=== PATIENT | female | born 1985 | race Asian ===

== ENCOUNTER 2018-02-14 21:22 | Inpatient (IN) | payer BC, OTHER ==
[~2018-02-14] VITALS: Ht 157.5 cm; Wt 71.7 kg
[2018-02-14] MEDS ORDERED: OXYTOCIN 20 UNITS in LACTATED RINGERS 1,000 ML IV SCH (21:52)
[2018-02-14] MEDS ORDERED: LACTATED RINGERS 1,000 ML IV SCH (21:52)
[2018-02-14] MEDS ORDERED: OXYTOCIN 10 UNITS/ML VIAL IM ONE (21:55)
[2018-02-14] MEDS ORDERED: NALBUPHINE 10 MG/ML AMP IVP PRN (21:55)
[2018-02-14] MEDS ORDERED: METHYLERGONOVINE 0.2 MG/ML AMP IM PRN (21:55)
[2018-02-14] MEDS ORDERED: CARBOPROST 250 MCG/ML AMP IM PRN (21:55)
[2018-02-14] MEDS ORDERED: PROMETHAZINE 25 MG/ML VIAL IVP PRN (21:55)
[2018-02-14 22:00] VITALS: BP 130/78
[2018-02-14] MEDS ORDERED: PROMETHAZINE 25 MG/ML VIAL ONE (22:05)
[2018-02-14] MEDS ORDERED: NALBUPHINE 10 MG/ML AMP ONE (22:05)
[2018-02-14] MEDS ORDERED: AMPICILLIN 2,000 MG VIAL ONE (22:23)
[2018-02-14 22:52] LABS: BASOPHILS % (AUTO) 0.2 % (0.0-2.0); EOSINOPHILS % (AUTO) 0.1 % (0.0-4.0); HEMATOCRIT 43.7 % (36-48); HEMOGLOBIN 14.4 g/dL (12.0-16.0); LYMPHOCYTES # (AUTO) 1.2 K/uL (2.5-16.5); MEAN CORPUSCULAR HEMOGLOBIN 32 pg (27-31); MEAN CORPUSCULAR HGB CONC 33 g/dL (33-37); MEAN CORPUSCULAR VOLUME 95.7 fL (80-94); MONOCYTES # (AUTO) 0.6 K/uL (0.8-1.0); MONOCYTES % (AUTO) 5.3 % (1.7-9.3); NEUTROPHILS # (AUTO) 10.1 K/uL (1.8-7.7); NEUTROPHILS % (AUTO) 84.4 % (42.2-75.2); PLATELET COUNT (AUTO) 208 K/uL (140-450); RED BLOOD CELL COUNT(AUTO) 4.57 MIL/uL (4.20-5.40); RED CELL DISTRIBUTION WIDTH 13.1 % (11.6-13.7); WHITE BLOOD COUNT (AUTO) 11.9 K/uL (4.8-10.8)
[2018-02-14] MEDS ORDERED: AMPICILLIN 2,000 MG in NACL 0.9% 100 ML IV SCH (23:00)
[2018-02-14] MEDS ORDERED: OXYTOCIN 20 UNITS/LR PREMIX 1,000 ML IV ONE (23:15)
[2018-02-14 23:28] LABS: ALBUMIN 1.3 g/dL (3.4-5.0); ANION GAP 15.8 (8-16); CARBON DIOXIDE 23.1 mmol/L (21-32); CREATININE 0.9 mg/dL (0.6-1.3); POTASSIUM 3.9 mmol/L (3.5-5.1); TOTAL BILIRUBIN 0.4 mg/dL (0.0-1.0)
[2018-02-15] MEDS ORDERED: OXYTOCIN 10 UNITS/ML VIAL ONE (00:07)
[2018-02-15] MEDS ORDERED: LIDOCAINE MPF 1% - 5 mL VIAL 15 ML ONE (00:48)
[2018-02-15] MEDS ORDERED: LIDOCAINE MPF 1% 5mL VIAL INJ SCH (03:00)
[2018-02-15] MEDS ORDERED: oxyCODONE/APAP 5/325 MG 1 TAB TAB PO PRN (03:55)
[2018-02-15] MEDS ORDERED: HYDROcodone/APAP 5/325 MG 1 TAB TAB PO PRN (03:55)
[2018-02-15] MEDS ORDERED: TEMAZEPAM 15 MG CAP PO PRN (03:55)
[2018-02-15] MEDS ORDERED: METHYLERGONOVINE 0.2 MG/ML AMP IM PRN (03:55)
[2018-02-15] MEDS ORDERED: BENZOCAINE/MENTHOL 20%-0.5% 60 GM CAN TP PRN (03:55)
[2018-02-15] MEDS ORDERED: OXYTOCIN 10 UNITS/ML VIAL IM PRN (03:55)
[2018-02-15] MEDS ORDERED: MEASLES, MUMPS, AND RUBELLA 1 VIAL SQVAC PRN (03:55)
[2018-02-15] MEDS ORDERED: DOCUSATE SOD/SENNA 50/8.6 MG 1 TAB PO SCH (21:00)
[2018-02-16] MEDS: IBUPROFEN 800 MG TAB PO PRN ×2 (01:44→11:12)
[2018-02-16 06:36] LABS: HEMATOCRIT 36.1 % (36-48); HEMOGLOBIN 12.2 g/dL (12.0-16.0)
--- NOTE | 2018-02-16 11:44 | NUR ---
PATIENT HAS BEEN SCREENED AND CATEGORIZED LOW NUTRITION RISK. PATIENT WILL BE SEEN WITHIN 7 DAYS OF ADMISSION. 02/21/[address]
[2018-02-16] MEDS ORDERED: IBUP-2213 PO (13:21)
[2018-02-17 06:50] LABS: HEPATITIS B SURFACE ANTIGEN Negative (Negative)
== END 2018-02-16 21:38 | disposition home or self-care (01) | DRG 775 ==
LOC: MLD 21:22 → MFCC 02-15 03:30
PROVIDERS: ADMIT Obstetrics & Gynecology; ATTEND Obstetrics & Gynecology
PROC: 10E0XZZ Delivery of Products of Conception, External Approach (ICD-10-PCS; principal; 2018-02-14)
PROC: 0KQM0ZZ Repair Perineum Muscle, Open Approach (ICD-10-PCS; 2018-02-14)
PROC: 10907ZC Drainage of Amniotic Fluid, Therapeutic from Products of Conception, Via Natural or Artificial Opening (ICD-10-PCS; 2018-02-14)
PROC: 3E033VJ Introduction of Other Hormone into Peripheral Vein, Percutaneous Approach (ICD-10-PCS; 2018-02-14)
DX: O69.81X0 Labor and delivery complicated by cord around neck, without compression, not applicable or unspecified (principal); O70.1 Second degree perineal laceration during delivery; Z37.0 Single live birth; Z3A.39 39 weeks gestation of pregnancy; O89.4 Spinal and epidural anesthesia-induced headache during the puerperium; Z83.3 Family history of diabetes mellitus
CPT/HCPCS: 36415; 59409; 80053; 85018; 85025; 86592; 86762; 86886; 86900; 86901; 87340; 87653-90; J0290; J2001; J2300; J2550; J2590; J7120